=== PATIENT | male | born 1995 | race Caucasian/White ===

== ENCOUNTER 2017-10-18 15:43 | Emergency (ER) | payer BC, OTHER ==
[2017-10-18 17:32] VITALS: BP 118/60
--- NOTE | 2017-10-18 17:42 | UC ---
UC General HPI - HPI Summary HPI Summary: pt has noted more frequent urination for the past 1-2 weeks. denies excess thirst and weight loss. states girlfriend is a nurse and wants to ensure not diabetes. denies burning with urination and discharge. just had std testing and that was normal. - History of Current Complaint Chief Complaint: UCGU Stated Complaint: URINARY Time Seen by Provider: 10/18/17 17:36 Hx Obtained From: Patient Timing: Constant Pain Intensity: 0 Aggravating: nothing Alleviating: nothing Associated Signs & Symptoms: Negative: Abdominal Pain, Dysuria, Fever - Allergy/Home Medications Allergies/Adverse Reactions: Allergies Allergy/AdvReac Type Severity Reaction Status Date / Time amoxicillin Allergy Unknown Unknown Verified 10/18/17 17:33 Reaction Details Penicillins Allergy Unknown Unknown Verified 10/18/17 17:33 Reaction Details Home Medications: Home Medications NK [No Home Medications Reported] 10/18/17 [History Confirmed 10/18/17] PMH/Surg Hx/FS Hx/Imm Hx Previously Healthy: Yes - Surgical History Surgical History: Yes Surgery Procedure, Year, and Place: tonsillectomy. ear tubes - Family History Known Family History: Positive: None - Social History Occupation: Employed Full-time Lives: With Family Alcohol Use: Occasionally Alcohol Amount: once a month Substance Use Type: None Smoking Status (MU): Former Smoker When Did the Patient Quit Smoking/Using Tobacco: 3 weeks ago - Immunization History Vaccination Up to Date: Yes Review of Systems Constitutional: Negative Skin: Negative Eyes: Negative ENT: Negative Respiratory: Negative Cardiovascular: Negative Gastrointestinal: Negative Genitourinary: Frequency Motor: Negative Neurovascular: Negative Musculoskeletal: Negative Neurological: Negative Psychological: Negative Is Patient Immunocompromised?: No All Other Systems Reviewed And Are Negative: Yes Physical Exam Triage Information Reviewed: Yes Appearance: Well-Appearing Vital Signs: Initial Vital Signs Temp 98.9 F 10/18/17 17:27 Pulse 74 10/18/17 17:27 Resp 17 10/18/17 17:27 BP 118/60 10/18/17 17:27 Pulse Ox 99 10/18/17 17:27 Vital Signs Reviewed: Yes Eyes: Positive: Conjunctiva Clear ENT: Positive: Normal ENT inspection Neck: Positive: Supple, Nontender, No Lymphadenopathy Respiratory: Positive: Lungs clear, Normal breath sounds Cardiovascular: Positive: RRR, No Murmur Abdomen Description: Positive: Nontender, No Organomegaly, Soft Bowel Sounds: Positive: Present Musculoskeletal: Positive: ROM Intact Neurological: Positive: Alert Psychological: Positive: Age Appropriate Behavior Skin Exam: Normal Diagnostics - Laboratory Diagnostic Studies Completed/Ordered: u/a=no blodd, leukocytes, nitrite or glucose. SG 1.025. FS VI=169 non fasting Course/Dx - Course Course Of Treatment: pt declined std testing citing no concern and recently tested with negative result. u/a=no concern for uti and no glucose. FS CQ=[id number]. nothing to suggest DM. will refer to pcp - Differential Dx - Multi-Symptom Provider Diagnoses: frequent urination Discharge - Sign-Out/Discharge Documenting (check all that apply): Discharge/Admit/Transfer - Discharge Plan Condition: Stable Disposition: HOME Patient Education Materials: Urinary Urgency and Frequency (DC) Referrals: Kane Rosado MD [Primary Care Provider] - As Soon As Possible - Billing Disposition and Condition Condition: STABLE Disposition: HOME
== END 2017-10-18 18:15 | disposition home or self-care (01) ==
LOC: UCCORT 15:43
DX: R35.0 Frequency of micturition (principal); Z87.891 Personal history of nicotine dependence; Z88.3 Allergy status to other anti-infective agents; Z88.0 Allergy status to penicillin
CPT/HCPCS: 81003; 99201; G0463

== ENCOUNTER 2019-08-20 19:53 | Emergency (ER) | payer OTHER ==
--- OUTSIDE RECORDS SUMMARY | 2019-08-20 19:58 | XMS REPORT | Continuity of Care Document ---
:1995 External Reference #:[id number] Author Name Camden Hopson MD Address [address] [place] [address] Care Team Providers Name Role Phone Camden Hopson MD - Family Care Team Information [employer] Developer Medicine Problems Description No Information Available Social History Type Date Description Comments Sex Unknown Tobacco Use Start: Unknown Light tobacco smoker (10 or fewer cigarettes/day) Smoking Status Reviewed: 08/10/19 Light tobacco smoker (10 or fewer cigarettes/day) Allergies, Adverse Reactions, Alerts Active Allergies Reaction Severity Comments Date Amoxicillin 08/10/2019 Penicillin 08/10/2019 Medications Description No Active Medications Immunizations Description No Information Available Vital Signs Date Vital Result Comment 08/10/2019 6:13pm BP Systolic 110 mmHg BP Diastolic 72 mmHg Heart Rate 80 /min Body Temperature 98.8 F Respiratory Rate 16 /min Height 72 inches 6'0" Weight 272.00 lb BMI (Body Mass Index) 36.9 kg/m2 Results Description No Information Available Procedures Description No Information Available Medical Devices Description No Information Available Encounters Description No Information Available Assessments Date Code Description Provider 08/10/2019 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 Yes No Are there Barriersto Adherence? Yes No Has the patient been asked about herbal supplements and therapies, and OTC meds? Yes No Functional Status Description No Information Available Mental Status Description No Information Available Referrals Description No Information Available
[2019-08-20 20:01] VITALS: BP 132/78
--- NOTE | 2019-08-20 20:57 | UC ---
Lower Extremity/Ankle HPI - HPI Summary HPI Summary: patient was playing basketball tonight and jumped up, came down and twisted ankle and another player fell on him now has R ankle pain - History of Current Complaint Chief Complaint: UCLowerExtremity Stated Complaint: ANKLE INJURY Time Seen by Provider: 08/20/19 20:20 Hx Obtained From: Patient Onset/Duration: Sudden Onset Severity Initially: Moderate Severity Currently: Moderate Pain Intensity: 5 Aggravating Factor(s): Standing, Ambulation Alleviating Factor(s): Rest, Elevation, Ice Able to Bear Weight: Yes - Allergies/Home Medications Allergies/Adverse Reactions: Allergies Allergy/AdvReac Type Severity Reaction Status Date / Time amoxicillin Allergy Unknown Unknown Verified 08/20/19 20:01 Reaction Details Penicillins Allergy Unknown Unknown Verified 08/20/19 20:01 Reaction Details Home Medications: Home Medications NK [No Home Medications Reported] 10/18/17 [History Confirmed 08/20/19] PMH/Surg Hx/FS Hx/Imm Hx Previously Healthy: Yes - Surgical History Surgical History: Yes Surgery Procedure, Year, and Place: tonsillectomy. ear tubes. appendectomy - Family History Known Family History: Positive: None - Social History Occupation: Employed Full-time Lives: With Family Alcohol Use: None Alcohol Amount: once a month Substance Use Type: None Smoking Status (MU): Current Every Day Smoker Type: eCigarettes Amount Used/How Often: vapes When Did the Patient Quit Smoking/Using Tobacco: 3 weeks ago - Immunization History Vaccination Up to Date: Yes Review of Systems All Other Systems Reviewed And Are Negative: Yes Constitutional: Positive: Negative Skin: Positive: Negative. Negative: Bruising Respiratory: Positive: Negative Cardiovascular: Positive: Negative Musculoskeletal: Positive: Other: - pain lateral R ankle. Negative: Decreased ROM Neurological/Mental Status: Positive: Negative Psychological: Positive: Negative Is Patient Immunocompromised?: No Physical Exam Triage Information Reviewed: Yes Appearance: Well-Appearing, No Pain Distress, Well-Nourished Vital Signs: Initial Vital Signs Temp 98.2 F 08/20/19 19:57 Pulse 90 08/20/19 19:57 Resp 16 08/20/19 19:57 BP 132/78 08/20/19 19:57 Pulse Ox 97 08/20/19 19:57 Vital Signs Reviewed: Yes Respiratory Exam: Normal Respiratory: Positive: Lungs clear Cardiovascular Exam: Normal Cardiovascular: Positive: RRR Musculoskeletal: Positive: Strength Intact, ROM Intact - with pain R ankle Psychological Exam: Normal Skin Exam: Normal Lower Extremity Course/Dx - Differential Dx/Diagnosis Differential Diagnosis/HQI/PQRI: Contusion, Fracture (Closed), Sprain Provider Diagnosis: Ankle sprain Discharge ED - Sign-Out/Discharge Documenting (check all that apply): Patient Departure All imaging exams completed and their final reports reviewed: No - Discharge Plan Condition: Good Disposition: HOME Patient Education Materials: Ankle Sprain (DC) Referrals: No Primary Care Phys,NOPCP [Primary Care Provider] - Guido Felipe MD [Medical Doctor] - 5 Days (for recheck) Additional Instructions: Ice and elevate leg. Use Tylenol or ibuprofen as directed for pain - take with food Use gem wrap and ankle splint for 5-7 days - Billing Disposition and Condition Condition: GOOD Disposition: Home
--- NOTE | 2019-08-21 08:24 | UC ---
- Progress Note Progress Note: Final x-ray report reviewed: X-rays of right ankle:FINDINGS: The soft tissues are unremarkable. The bone mineralization is within normal limits. There is equivocal nondisplaced lucency about the distal fibula at the level of the ankle mortise. Anatomic alignment is maintained. The joint spaces are preserved. IMPRESSION: Equivocal nonspecific lucency about the distal fibula. Correlate with point tenderness. If pain persists, follow-up imaging is recommended. During the visit, Recommendations to follow up with Dr. Felipe. RN to call the patient and inform him of the final report of x-ray and advised to definitely keep the follow-up appointment with orthopedics. Course/Dx - Diagnoses Provider Diagnoses: Ankle sprain Discharge ED - Sign-Out/Discharge Documenting (check all that apply): Post-Discharge Follow Up All imaging exams completed and their final reports reviewed: Yes - Discharge Plan Condition: Good Disposition: HOME Patient Education Materials: Ankle Sprain (DC) Referrals: Guido Felipe MD [Medical Doctor] - 5 Days (for recheck) No Primary Care Phys,NOPCP [Primary Care Provider] - Additional Instructions: Ice and elevate leg. Use Tylenol or ibuprofen as directed for pain - take with food Use gem wrap and ankle splint for 5-7 days - Billing Disposition and Condition Condition: GOOD Disposition: Home
== END 2019-08-20 21:05 | disposition home or self-care (01) ==
LOC: UCEAST 19:53
DX: S93.401A Sprain of unspecified ligament of right ankle, initial encounter (principal); F17.290 Nicotine dependence, other tobacco product, uncomplicated; Z88.0 Allergy status to penicillin; X50.1XXA Overexertion from prolonged static or awkward postures, initial encounter; Y93.67 Activity, basketball; Y92.9 Unspecified place or not applicable
CPT/HCPCS: 99213; G0463

== ENCOUNTER 2020-10-22 18:17 | Inpatient (IN) ==
[2020-10-22] MEDS ORDERED: NS 0.9% 1000 ml BAG 2,000 ML IV ONE (19:19)
[2020-10-22 19:33] LABS: ABS Lymphocytes 0.6 10^3/ul (1.0-4.8); ABS Monocytes 0.4 10^3/ul (0-0.8); ABS Neutrophils 3.3 10^3/ul (1.5-7.7); Eosinophil % 0.3 %; Hematocrit 42 % (42-52); Hemoglobin 15.3 g/dL (14.0-18.0); Lymphocyte % 14.7 %; Mean Corpuscular HGB Conc 36 g/dL (31-36); Mean Corpuscular Hemoglobin 31 pg (27-31); Mean Corpuscular Volume 85 fL (80-94); Mean Platelet Volume 8.5 fL (7.4-10.4); Nucleated Red Blood Cells % 0.1; Platelet Count 222 10^3/uL (150-450); Red Blood Count 4.96 10^6 /uL (4.18-5.48); Red Cell Distribution Width 13 % (10-15); White Blood Count 4.3 10^3/uL (3.5-10.8)
[2020-10-22 19:43] LABS: Albumin 3.7 g/dL (3.2-5.2); Albumin/Globulin Ratio 1.3 (1-3); C Reactive Protein 93.46 mg/L (<8.01); Calcium 8.8 mg/dL (8.6-10.3); EGFR Non-African American 92.6 (>60); Globulin 2.8 g/dL (2-4); Potassium 3.6 mmol/L (3.5-5.0); Total Bilirubin 1.2 mg/dL (0.2-1.0); Total Protein 6.5 g/dL (6.4-8.9)
[2020-10-22 20:22] LABS: Influenza A Molecular Negative (Negative); Influenza B Molecular Negative (Negative)
[2020-10-22] MEDS ORDERED: Ondansetron 4 mg VIAL 2 MG/ML 2 ml VIAL IV ONE (20:34)
[2020-10-22] MEDS ORDERED: cefTRIAXone 1 gm/50 mL NS BAG 1 GM/50 ML BAG IV ONE (20:35)
[2020-10-22] MEDS ORDERED: Albuterol HFA INHALER 8 gm MDI INH PRN (21:35)
[2020-10-22] MEDS ORDERED: Ondansetron 4 mg VIAL 2 MG/ML 2 ml VIAL IV PRN (21:35)
[2020-10-22] MEDS ORDERED: Iohexol 350 (CONTRAST) 500 ML MDV IV ONE (21:37)
[2020-10-22] MEDS: Azithromycin 500 mg/250 ml NS 500 MG/250 ML BAG IVPB SCH (23:54)
[2020-10-22 23:56] LABS: HIV 4th Generation Nonreactive (Nonreactive)
[2020-10-23 05:07] LABS: ABS Lymphocytes 0.5 10^3/ul (1.0-4.8); ABS Monocytes 0.2 10^3/ul (0-0.8); ABS Neutrophils 2.7 10^3/ul (1.5-7.7); Eosinophil % 0.1 %; Hematocrit 40 % (42-52); Hemoglobin 13.9 g/dL (14.0-18.0); Lymphocyte % 13.5 %; Mean Corpuscular HGB Conc 35 g/dL (31-36); Mean Corpuscular Hemoglobin 31 pg (27-31); Mean Corpuscular Volume 88 fL (80-94); Mean Platelet Volume 8.4 fL (7.4-10.4); Nucleated Red Blood Cells % 0.1; Platelet Count 226 10^3/uL (150-450); Red Blood Count 4.55 10^6 /uL (4.18-5.48); Red Cell Distribution Width 13 % (10-15); White Blood Count 3.3 10^3/uL (3.5-10.8)
[2020-10-23 05:33] LABS: INR 1.32 (0.82-1.09)
[2020-10-23 05:34] LABS: Albumin 3.4 g/dL (3.2-5.2); Albumin/Globulin Ratio 1.4 (1-3); Calcium 8.5 mg/dL (8.6-10.3); EGFR African American 140.9 (>60); EGFR Non-African American 116.4 (>60); Globulin 2.4 g/dL (2-4); Indirect Bilirubin 0.6 mg/dL (0.3-1.0); Potassium 3.8 mmol/L (3.5-5.0); Total Bilirubin 1.1 mg/dL (0.2-1.0); Total Protein 5.8 g/dL (6.4-8.9)
[2020-10-23 10:58] LABS: Urine Appearance Clear; Urine Bacteria Absent (Absent); Urine Bilirubin Negative (Negative); Urine Blood Negative (Negative); Urine Color Amber; Urine Glucose Negative (Negative); Urine Ketones 1+ (Negative); Urine Nitrite Negative (Negative); Urine Protein 2+(100 mg/dL) (Negative); Urine Red Blood Cell Trace(0-2/hpf) (Absent); Urine Urobilinogen Positive (Negative); Urine White Blood Cell Absent (Absent)
[2020-10-23 11:25] LABS: Urine Specific Gravity > 1.060 (1.002-1.030)
[2020-10-23] MEDS ORDERED: Remdesivir 100 mg Vial 200 MG in NS 0.9% 250 ml 210 ML IV ONE (13:35)
[2020-10-23 15:07] LABS: Hepatitis B Surface Antigen Nonreactive (Nonreactive)
[2020-10-23 15:12] LABS: Hepatitis A Ab IgM Negative (Negative); Hepatitis B Core IgM Nonreactive (Nonreactive)
[2020-10-23 15:35] LABS: Hepatitis C Antibody Negative (Negative)
[2020-10-23] MEDS ORDERED: Enoxaparin 60 MG/0.6 ML SYR SUBCUT SCH ×2 (21:00)
[2020-10-23] MEDS: cefTRIAXone 1 gm/50 mL NS BAG 1 GM/50 ML BAG IVPB SCH (21:37)
[2020-10-23] MEDS: Enoxaparin 40 MG/0.4 ML SYR SUBCUT SCH (21:43)
[2020-10-23] MEDS: Azithromycin 500 mg/250 ml NS 500 MG/250 ML BAG IVPB SCH (22:20)
[2020-10-24 08:56] LABS: ABS Lymphocytes 0.8 10^3/ul (1.0-4.8); ABS Monocytes 0.5 10^3/ul (0-0.8); Hematocrit 41 % (42-52); Hemoglobin 13.9 g/dL (14.0-18.0); Lymphocyte % 14.8 %; Mean Corpuscular HGB Conc 34 g/dL (31-36); Mean Corpuscular Hemoglobin 30 pg (27-31); Mean Corpuscular Volume 87 fL (80-94); Mean Platelet Volume 8.3 fL (7.4-10.4); Nucleated Red Blood Cells % 0.1; Platelet Count 298 10^3/uL (150-450); Red Blood Count 4.67 10^6 /uL (4.18-5.48); Red Cell Distribution Width 13 % (10-15); White Blood Count 5.3 10^3/uL (3.5-10.8)
[2020-10-24 09:00] LABS: INR 1.31 (0.82-1.09)
[2020-10-24] MEDS ORDERED: Remdesivir 100 mg Vial 100 MG in NS 0.9% 250 ml 230 ML IV SCH (09:00)
[2020-10-24 09:11] LABS: Albumin 3.4 g/dL (3.2-5.2); Albumin/Globulin Ratio 1.4 (1-3); EGFR Non-African American 119.8 (>60); Globulin 2.5 g/dL (2-4); Potassium 3.9 mmol/L (3.5-5.0); Total Bilirubin 0.8 mg/dL (0.2-1.0); Total Protein 5.9 g/dL (6.4-8.9)
[2020-10-24 16:01] LABS: Hepatitis Be Antigen Negative (Negative)
[2020-10-24 16:16] LABS: Hepatitis Be Antibody Negative (Negative)
[2020-10-24] MEDS: Azithromycin 500 mg/250 ml NS 500 MG/250 ML BAG IVPB SCH (21:02)
[2020-10-24] MEDS: Enoxaparin 40 MG/0.4 ML SYR SUBCUT SCH (21:03)
[2020-10-24] MEDS: cefTRIAXone 1 gm/50 mL NS BAG 1 GM/50 ML BAG IVPB SCH (22:08)
[2020-10-25 07:45] LABS: Albumin 3.5 g/dL (3.2-5.2); Albumin/Globulin Ratio 1.4 (1-3); Calcium 8.8 mg/dL (8.6-10.3); EGFR African American 129.9 (>60); EGFR Non-African American 107.3 (>60); Globulin 2.5 g/dL (2-4); Total Bilirubin 0.6 mg/dL (0.2-1.0)
[2020-10-25 08:00] LABS: INR 1.26 (0.82-1.09)
[2020-10-25] MEDS ORDERED: Remdesivir 100 mg Vial 100 MG in NS 0.9% 250 ml 230 ML IV SCH (08:15)
[2020-10-25 11:49] VITALS: BP 115/68
== END 2020-10-25 11:27 | disposition home or self-care (01) | DRG 720 ==
LOC: ED 18:17 → MED 21:35
PROVIDERS: ADMIT Hospitalist; ATTEND Internal Medicine

== ENCOUNTER 2020-10-27 14:18 | Inpatient (IN) ==
[2020-10-27] MEDS ORDERED: Albuterol HFA INHALER 8 gm MDI INH ONE (14:57)
[2020-10-27] MEDS ORDERED: NS 0.9% 1000 ml BAG 1,000 ML IV ONE (14:58)
[2020-10-27 15:36] LABS: Hematocrit 42 % (42-52); Hemoglobin 14.5 g/dL (14.0-18.0); Mean Corpuscular HGB Conc 35 g/dL (31-36); Mean Corpuscular Hemoglobin 30 pg (27-31); Mean Corpuscular Volume 87 fL (80-94); Mean Platelet Volume 8.2 fL (7.4-10.4); Platelet Count 209 10^3/uL (150-450); Red Blood Count 4.84 10^6 /uL (4.18-5.48); Red Cell Distribution Width 13 % (10-15); White Blood Count 12.7 10^3/uL (3.5-10.8)
[2020-10-27 15:47] LABS: Activated Partial Thrombo Time 29.2 seconds (26.0-38.0); INR 1.37 (0.82-1.09)
[2020-10-27 15:59] LABS: Alkaline Phosphatase 38 U/L (34-104)
[2020-10-27 16:01] LABS: ALT 142 U/L (7-52); Albumin 3.7 g/dL (3.2-5.2); Albumin/Globulin Ratio 1.4 (1-3); Anion Gap 4 mmol/L (2-11); Blood Urea Nitrogen 16 mg/dL (6-24); C Reactive Protein 45.52 mg/L (<8.01); CO2 Carbon Dioxide 23 mmol/L (22-32); Calcium 8.1 mg/dL (8.6-10.3); Chloride 103 mmol/L (101-111); EGFR African American 121.8 (>60); EGFR Non-African American 100.7 (>60); Globulin 2.7 g/dL (2-4); Glucose 108 mg/dL (70-100); Sodium 130 mmol/L (135-145); Total Protein 6.4 g/dL (6.4-8.9)
[2020-10-27] MEDS ORDERED: Iohexol 350 (CONTRAST) 500 ML MDV IV ONE (16:19)
[2020-10-27 16:33] LABS: ABS Basophils 0.1 10^3/ul (0-0.2); ABS Eosinophils 0.1 10^3/ul (0-0.6); ABS Lymphocytes 1.7 10^3/ul (1.0-4.8); ABS Neutrophils 9.8 10^3/ul (1.5-7.7); Eosinophil % 0.4 %; Lymphocyte % 13.2 %; Nucleated Red Blood Cells % 0.1
[2020-10-27 17:21] LABS: Urine Appearance Clear; Urine Bilirubin Negative (Negative); Urine Blood Negative (Negative); Urine Color Yellow; Urine Glucose Negative (Negative); Urine Ketones Negative (Negative); Urine Nitrite Negative (Negative); Urine Protein Negative (Negative); Urine Urobilinogen Negative (Negative)
[2020-10-27 17:54] LABS: Potassium Redraw 3.3 mmol/L (3.5-5.0)
[2020-10-27] MEDS ORDERED: Heparin 5000 UNITS/ML 1 mL VIAL IV PRN (18:00)
[2020-10-27] MEDS: Heparin DRIP 25,000 UNITS BAG 25,000 UNITS/500 ML BAG IV SCH (18:53)
[2020-10-27 19:01] LABS: Rapid Strep Molecular Negative (Negative)
[2020-10-27 19:32] LABS: Magnesium 2.8 mg/dL (1.9-2.7)
[2020-10-27] MEDS: cefTRIAXone 1 gm/50 mL NS BAG 1 GM/50 ML BAG IVPB SCH (22:20)
[2020-10-27] MEDS: Lactated Ringers 1000 ml BAG 1,000 ML IV SCH (22:20)
[2020-10-27] MEDS: Potassium Chlor 20 meq TAB.ER PO SCH (22:20)
[2020-10-27 23:08] LABS: EGFR African American 109.5 (>60); EGFR Non-African American 90.5 (>60)
[2020-10-28] MEDS: Lactated Ringers 1000 ml BAG 1,000 ML IV SCH ×2 (06:06→16:49)
[2020-10-28 07:11] LABS: Hematocrit 40 % (42-52); Hemoglobin 13.7 g/dL (14.0-18.0); Mean Corpuscular HGB Conc 34 g/dL (31-36); Mean Corpuscular Hemoglobin 30 pg (27-31); Mean Corpuscular Volume 87 fL (80-94); Mean Platelet Volume 8.7 fL (7.4-10.4); Platelet Count 192 10^3/uL (150-450); Red Cell Distribution Width 13 % (10-15); White Blood Count 12.9 10^3/uL (3.5-10.8)
[2020-10-28 07:17] LABS: ABS Eosinophils 0.1 10^3/ul (0-0.6); ABS Lymphocytes 2.4 10^3/ul (1.0-4.8); ABS Monocytes 1.1 10^3/ul (0-0.8); ABS Neutrophils 9.2 10^3/ul (1.5-7.7); Eosinophil % 0.9 %; Nucleated Red Blood Cells % 0.3
[2020-10-28 07:23] LABS: Albumin 2.9 g/dL (3.2-5.2); Albumin/Globulin Ratio 1.2 (1-3); Calcium 8.3 mg/dL (8.6-10.3); EGFR African American 113.4 (>60); EGFR Non-African American 93.7 (>60); Globulin 2.4 g/dL (2-4); Potassium 3.5 mmol/L (3.5-5.0); Total Bilirubin 0.7 mg/dL (0.2-1.0); Total Protein 5.3 g/dL (6.4-8.9)
[2020-10-28] MEDS: Potassium Chlor 20 meq TAB.ER PO SCH (08:03)
[2020-10-28] MEDS ORDERED: Perflutren Lipid Microsphere 3 ML VIAL ONE (09:11)
[2020-10-28] MEDS: Heparin DRIP 25,000 UNITS BAG 25,000 UNITS/500 ML BAG IV SCH (09:56)
[2020-10-28] MEDS: cefTRIAXone 1 gm/50 mL NS BAG 1 GM/50 ML BAG IVPB SCH (21:40)
[2020-10-29 06:55] LABS: ABS Eosinophils 0.1 10^3/ul (0-0.6); ABS Lymphocytes 1.5 10^3/ul (1.0-4.8); ABS Monocytes 1.3 10^3/ul (0-0.8); ABS Neutrophils 9.1 10^3/ul (1.5-7.7); Eosinophil % 0.9 %; Hematocrit 39 % (42-52); Hemoglobin 13.2 g/dL (14.0-18.0); Lymphocyte % 12.2 %; Mean Corpuscular HGB Conc 34 g/dL (31-36); Mean Corpuscular Hemoglobin 30 pg (27-31); Mean Corpuscular Volume 86 fL (80-94); Mean Platelet Volume 7.7 fL (7.4-10.4); Platelet Count 158 10^3/uL (150-450); Red Blood Count 4.47 10^6 /uL (4.18-5.48); Red Cell Distribution Width 13 % (10-15)
[2020-10-29 07:20] LABS: EGFR African American 123.4 (>60)
[2020-10-29] MEDS: Potassium Chlor 20 meq TAB.ER PO SCH (09:14)
[2020-10-30 06:38] LABS: Hematocrit 38 % (42-52); Hemoglobin 13.1 g/dL (14.0-18.0); Mean Corpuscular HGB Conc 34 g/dL (31-36); Mean Corpuscular Hemoglobin 30 pg (27-31); Mean Corpuscular Volume 88 fL (80-94); Platelet Count 182 10^3/uL (150-450); Red Blood Count 4.36 10^6 /uL (4.18-5.48); Red Cell Distribution Width 13 % (10-15); White Blood Count 13.8 10^3/uL (3.5-10.8)
[2020-10-30 08:33] LABS: ABS Eosinophils 0.1 10^3/ul (0-0.6); ABS Lymphocytes 1.4 10^3/ul (1.0-4.8); ABS Monocytes 1.7 10^3/ul (0-0.8); ABS Neutrophils 10.4 10^3/ul (1.5-7.7); Eosinophil % 0.8 %; Lymphocyte % 10.5 %; Nucleated Red Blood Cells % 0.1
[2020-10-30 16:11] VITALS: BP 137/50
== END 2020-10-30 18:25 | disposition home or self-care (01) | DRG 134 ==
LOC: ED 14:18 → MEDTELE 17:43 → MED 21:05
PROVIDERS: ADMIT Internal Medicine; ATTEND Internal Medicine